=== PATIENT | female | born 1970 | race Caucasian/White ===

== ENCOUNTER 2019-06-16 07:39 | Inpatient (IN) ==
[2019-06-08 19:18] LABS: Basophils # (Auto) 0.03 K/mcL (0.00-0.30); Basophils % (Auto) 0.4 % (0.0-2.0); Eosinophils % (Auto) 2.7 % (0.0-7.0); Granulocytes % (Auto) 52.3 % (38.0-78.0); Hematocrit 42.7 % (34.1-44.9); Hemoglobin 13.9 g/dL (11.2-15.7); Lymphocytes # (Auto) 2.74 K/mcL (1.50-4.80); Lymphocytes % (Auto) 36.8 % (15.5-49.0); Mean Cell Volume 87.5 fL (80.0-100.0); Mean Corpuscular HGB Conc 32.6 g/dL (31.0-36.0); Mean Platelet Volume 11.4 fL (7.4-10.4); Monocytes # (Auto) 0.58 K/mcL (0.10-0.90); Monocytes % (Auto) 7.8 % (1.0-12.0); Platelet Count 313 K/mcL (140-440); RBC 4.88 M/mcL (3.59-5.38); Red Cell Distribution Width 13.2 % (11.5-14.5); WBC 7.4 K/mcL (4.50-11.00)
[2019-06-08 19:30] LABS: Blood Urea Nitrogen 15 mg/dl (6-20); Calcium 9.3 mg/dl (8.6-10.4); Carbon Dioxide 22 mmol/L (22-30); Chloride 103 mmol/L (96-108); Glomerular Filtration Rate 87; Glucose 91 mg/dL (70-105)
[2019-06-08 20:06] LABS: Estimated Average Glucose(eAG) 126 mg/dL
[~2019-06-16 07:39] MED LIST: CELECOXIB 200 MG CAPSULE PO SCH; IPRATROPIUM/ALBUTEROL 3 ML AMPUL.NEB NEB PRN; PREGABALIN 75 MG CAPSULE PO SCH; SCOPOLAMINE 1 PATCH PATCH TOPICAL PRN; ceFAZolin 2 GM in DEXTROSE 5% IN WATER 50 ML IV SCH; oxyCODONE 10 MG TAB.ER.12H PO SCH
[2019-06-16] MEDS ORDERED: PROPOFOL 200 MG/20 ML VIAL IV ONE (11:50)
[2019-06-16] MEDS ORDERED: TRANEXAMIC ACID 1,000 MG/10 ML VIAL IV ONE (11:50)
[2019-06-16] MEDS ORDERED: GLYCOPYRROLATE 0.2 MG/ML VIAL IV ONE (11:50)
[2019-06-16] MEDS ORDERED: KETAMINE 100 MG/ML ML IV ONE (11:50)
[2019-06-16] MEDS ORDERED: DEXAMETHASONE 10 MG/ML VIAL IV ONE (11:50)
[2019-06-16] MEDS ORDERED: LIDOCAINE HCL/PF 100 MG/5 ML SYRINGE IV ONE (11:50)
[2019-06-16] MEDS ORDERED: SUCCINYLCHOLINE 20 MG/ML ML IV ONE (11:50)
[2019-06-16] MEDS ORDERED: fentaNYL 250 MCG/5 ML VIAL IV ONE (11:50)
[2019-06-16] MEDS ORDERED: ONDANSETRON 4 MG/2 ML VIAL IV ONE (11:50)
[2019-06-16] MEDS ORDERED: BUPIVACAINE W/EPI 0.5% 50 ML VIAL IJ ONE (12:19)
[2019-06-16] MEDS ORDERED: METHOCARBAMOL 1,000 MG/10 ML VIAL IV PRN (12:53)
[2019-06-16] MEDS ORDERED: MEPERIDINE 25 MG/ML SYRINGE IV PRN (12:53)
[2019-06-16] MEDS ORDERED: MEPERIDINE 50 MG/ML INJECTION IM PRN (12:53)
[2019-06-16] MEDS ORDERED: ePHEDrine 50 MG/ML AMPUL IV PRN (12:53)
[2019-06-16] MEDS ORDERED: ONDANSETRON 4 MG/2 ML VIAL IV PRN ×2 (12:53→13:32)
[2019-06-16] MEDS ORDERED: ATROPINE SULFATE 0.4 MG/ML VIAL IV PRN (12:53)
[2019-06-16] MEDS ORDERED: PROMETHAZINE 25 MG/ML VIAL IV PRN (12:53)
[2019-06-16] MEDS ORDERED: PROMETHAZINE 25 MG/ML VIAL IM PRN (12:53)
[2019-06-16] MEDS ORDERED: METOPROLOL TARTRATE 5 MG/5 ML VIAL IV PRN (12:53)
[2019-06-16] MEDS ORDERED: HYDROmorphone 2 MG/ML VIAL IV PRN ×2 (12:53→13:32)
[2019-06-16] MEDS ORDERED: ACETAMINOPHEN 1,000 MG/100 ML BOTTLE IV ONE (12:53)
[2019-06-16] MEDS ORDERED: NALOXONE HCL 0.4 MG/ML VIAL IV PRN (12:53)
[2019-06-16] MEDS ORDERED: diphenhydrAMINE 50 MG/ML VIAL IV PRN (12:53)
[2019-06-16] MEDS ORDERED: IPRATROPIUM/ALBUTEROL 3 ML AMPUL.NEB NEB PRN (12:53)
[2019-06-16] MEDS ORDERED: LACTATED RINGERS 1,000 ML IV SCH (13:00)
--- NOTE | 2019-06-16 13:31 | Brief Operative Note ---
Date of procedure: 06/16/19 Pre-op diagnosis: Right shoulder severe OA Post-op diagnosis: same Procedure: 1)Right total shoulder arthroplasty 2)biceps tenodesis Grafts/Implants: Yes (Tornier small 35 cortiloc glenoid, 41 x 15 resurfacing head) Anesthesia: GETA Findings: severe bone on bone arthritis Complications: none Surgeon: Moe Mccall Security Sergeant: Cliff Sifuentes Estimated blood loss (cc): 150 Specimens Removed/Pathology: none sent Condition: stable Disposition: PACU
[2019-06-16] MEDS ORDERED: MAGNESIUM HYDROXIDE 30 ML ORAL.SUSP PO PRN (13:32)
[2019-06-16] MEDS ORDERED: BISACODYL 10 MG SUPP.RECT PR PRN (13:32)
[2019-06-16] MEDS ORDERED: POLYETHYLENE GLYCOL 3350 17 GM PACKET PO PRN (13:32)
[2019-06-16] MEDS ORDERED: FLEETS ADULT ENEMA PR PRN (13:32)
[2019-06-16] MEDS ORDERED: KETOROLAC 30 MG/ML VIAL IV PRN (13:32)
[2019-06-16] MEDS ORDERED: TRANEXAMIC ACID 1,000 MG/10 ML VIAL IV SCH (13:32)
[2019-06-16] MEDS: fentaNYL 100 MCG/2 ML VIAL IV PRN ×2 (14:25→14:29)
--- NOTE | 2019-06-16 15:03 | Operative Note ---
DATE OF OPERATION: 06/16/2019 PREOPERATIVE DIAGNOSIS: Right shoulder severe osteoarthritis. POSTOPERATIVE DIAGNOSIS: Right shoulder severe osteoarthritis. PROCEDURE PERFORMED: 1. Right total shoulder arthroplasty placing a Tornier Aequalis resurfacing head 41 x 15 and a small 35 cortiloc glenoid. 2. Bicep tenodesis. SURGEON: Moe Mccall MD VENTILATED RIB FITTER: Jean Carlos Sifuentes PA-C. This provider's expertise and technical skill were required throughout the case. The PA assisted with preoperative coordination, intraoperative retraction, wound closure, dressing and splint application, as well as postoperative documentation and care coordination. ANESTHESIA: General. DRAINS: None. SPECIMENS: None. COMPLICATIONS: None. BLOOD LOSS: 150 mL POSTOPERATIVE CONDITION: Stable. INDICATIONS FOR SURGERY: This is a 48-year-old female who has had longstanding progressive worsening severe right shoulder pain. Radiographs showed aboo-mj-ucjo osteoarthritis. FINDINGS AT SURGERY: She had severe [id number]-wt-[id number] arthritis. There were two very large loose bodies within the bicipital groove as well as significant retroversion of the glenoid. Post implantation showed good component position. PROCEDURE IN DETAIL: The patient had been seen preoperatively and informed consent had been obtained after discussion of risks and benefits of surgery. Risks including, but not limited to, bleeding, possibly requiring transfusion; infection, possibly requiring implant removal, prolonged IV antibiotics; injury to nerves, blood vessels, and other surrounding structures; anesthetic risks; incomplete or no resolution of symptoms, fracture, dislocation and possibility of needing further revision surgery. She understood and wished to proceed. Correct operative site was marked and the patient was taken to the operating room. General anesthesia induced. She was carefully positioned in the beach chair position and pressure points carefully padded. Right shoulder and upper extremity then carefully prepped and draped in normal sterile fashion and a timeout was performed verifying patient name, operative site, and plan. Ioban was used to cover all skin surfaces and a standard deltopectoral incision was made with a scalpel through skin and subcutaneous tissue. Hemostasis was obtained with Bovie cautery and then careful blunt dissection taken down onto the deltopectoral interval and the cephalic vein identified. IrriSept was irrigated and then careful blunt dissection was taken medial to the vein and then down to the subdeltoid space. Blunt finger dissection was used to develop the subdeltoid space and Syed deltoid retractor placed. The lateral edge of the conjoint tendon was identified and blue handle retractor placed underneath. We then palpated the biceps tendon and it was noted to be quite enlarged; felt like bony fragments that were loose within the bicipital groove. We went ahead and opened this and indeed there were two large loose bodies within the bicipital groove area. These were removed. The biceps was then amputated. A large curved osteotome was used to do a lesser tuberosity osteotomy to detach our subscap. We irrigated with IrriSept, and then an Ethibond traction stitch was placed around the lesser tuberosity bone fragment. We then dislocated the humeral head out anteriorly. A curved osteotome was used to remove inferior osteophytes and then we went ahead and exposed the glenoid. We removed labrum circumferentially as well as biceps stump. I also released capsule carefully keeping the Bovie directly on bone around the inferior portion of the glenoid, protecting the nerve with a metal sucker. Once we had adequate exposure, we did note on x-ray and looking at it that she had significant retroversion of the glenoid from her posterior wear so I did angle our guide pin to correct that. We then reamed until I had a flat surface circumferentially. This did significantly ream anterior bone. Prior to reaming, we had determined her size as a small 35. We then drilled the central peg. After this was completed, we used the peripheral drill guide to drill the three peripheral pegs and then a trial. It fit well, so we went ahead and opened a small 35 glenoid. DBX bone graft was placed in the flute of the central and then we irrigated with IrriSept while cement was mixed. We then suctioned and cemented the three peripheral holes pressurizing these and then the implant was impacted. This was held absolutely still until cement had fully hardened. We then re-exposed the proximal humerus. We sized her to a 41 and a guide pin was placed. We then used the reamer to ream until we contacted bone. We then opened a 41 x 15 implant. We irrigated with IrriSept. We did go ahead and cruciate punch and then irrigated with saline and then the implant was impacted until it was fully seated. We then checked our subluxation. It subluxed 50% posteriorly without difficulty, so I went ahead and did another IrriSept irrigation, after a minute more pulse lavage. We made two drill holes in the bicipital groove and then used a #2 FiberWire [id number]-ellhd around the lesser tuberosity osteotomy. We then, after tying the suture, took the biceps and ran the suture through biceps to tenodese and then cut the proximal stump off. The traction sutures were then passed through bone out laterally and tied in a mattress stitch over bone laterally. I also used #2 FiberWire [id number] in the rotator interval. Another IrriSept irrigation was done, after a minute more pulse lavage and #1 Vicryl was used to close the deltopectoral interval. Final IrriSept irrigation was done, after a minute final pulse lavage, and then fat was tacked to fascia with Vicryl and 2-0 Monocryl was used for subcutaneous and elysia for skin. Xeroform sterile dressings were applied. The arm was placed in a sling. The patient was awakened, extubated, and transferred to recovery in stable condition. [email or web address] Job ID: [id number] Doc ID: [id number] Moe Mccall MD MTDD
--- NOTE | 2019-06-16 15:24 | XRay Report ---
CLINICAL INFORMATION: Post-OP Total Shoulder COMPARISON: None. FINDINGS: Shoulder prostheses is anatomically aligned. No osseous abnormality. Soft tissue swelling seen as expected IMPRESSION: Negative Interpreted and Authenticated by: Dimitrios Larson 06/16/19
[2019-06-16] MEDS: 0.9 % SODIUM CHLORIDE 1,000 ML IV SCH ×2 (15:33→23:45)
[2019-06-16] MEDS: 0.9 % SODIUM CHLORIDE 10 ML SYRINGE IV SCH ×2 (15:38→23:22)
[2019-06-16] MEDS: oxyCODONE/APAP 5/325MG TABLET PO PRN ×2 (16:24→21:18)
[2019-06-16] MEDS: ceFAZolin 1 GM VIAL IV SCH (19:13)
[2019-06-16] MEDS: BENZOCAINE/MENTHOL 1 LOZENGE PO PRN (19:34)
[2019-06-16] MEDS ORDERED: SENNOSIDES 1 TABLET PO SCH (21:00)
[2019-06-16] MEDS: DOCUSATE SODIUM 100 MG CAPSULE PO SCH (21:18)
[2019-06-16] MEDS: ACYCLOVIR 400 MG TABLET PO SCH (21:19)
[2019-06-17] MEDS: oxyCODONE/APAP 5/325MG TABLET PO PRN ×3 (02:00→10:38)
[2019-06-17] MEDS: BENZOCAINE/MENTHOL 1 LOZENGE PO PRN (03:35)
[2019-06-17] MEDS: ceFAZolin 1 GM VIAL IV SCH (03:35)
[2019-06-17] MEDS: 0.9 % SODIUM CHLORIDE 10 ML SYRINGE IV SCH (06:52)
[2019-06-17] MEDS ORDERED: LEVOTHYROXINE 125 MCG TABLET PO SCH (07:30)
[2019-06-17] MEDS ORDERED: OMEPRAZOLE 20 MG CAPSULE PO SCH (07:30)
--- NOTE | 2019-06-17 07:51 | Discharge Summary ---
Providers - Providers Patient information: Note initiated : 06/17/19 at 7:49 am Service Date, if different from initiated Date: [] Patient: Vaishali Kumari 48 y/o F admitted on 06/16/19 for Right Total Shoulder Arthroplasty. Chief Complaint: [] Discharge date: 06/17/19 Hospitalization Hospital Course: Pt was admitted for a R TSA. Underwent procedure on the day of admission. Pt discharged post-op day 1. Will take ASA for DVT prophylaxis. f/u in 2 weeks. Discharge diagnosis: R shoulder OA Exam - Exam Clean and dry: Yes Weight bearing status: none Ortho Discharge - TSA - Patient Instructions Diet: Regular Diet Activity: non weight bearing Total Shoulder Protocol: Leave immobilizer in place except for bathing and ROM. Abduction pillow. Continue to wear sling until seen by physician. Codman Pendulum : These exercises use momentum produced by your body to move your shoulder joint. Bend your knees and shift your weight to your front leg, then back, allowing your arm to swing in the same directions. Using the same technique, alternately shift your weight between your right and left legs, allowing your arm to swing from side to side. These exercises are also performed in counterclockwise and clockwise circular motions. Typically these exercises are performed several times per day, for a set number repetitions or minutes, such as 20 times in a row or 5 minutes at a time. Dressing Care: May shower in 2 days - Follow Up Plan Disposition: Home, Self-Care Prognosis: Good Rehab Potential: Good Overall status at discharge: patient is progressing back to baseline - Orders For Discharge Prescriptions: Hydrocodone/APAP 7.5/325Mg [[place] 7.5-325Mg] 1 - 2 tab PO Q6HP PRN #70 tab PRN Reason: Pain Prescription Printed Pending Studies Resuscitation Status Full Code Diet Consistent Carbohydrate Diet Start FriJun 16 1333 Acyclovir (Zovirax) 400 mg PO BID [facility]; Protocol Last Admin: 06/16/19 21:19 Dose: 400 mg Documented by: EMILY Docusate Sodium (Colace) 100 mg PO BID [facility] Last Admin: 06/16/19 21:18 Dose: 100 mg Documented by: EMILY Sodium Chloride (Sodium Chloride 0.9%) 1,000 mls @ 100 mls/hr IV .Q10H [facility] Last Infusion: 06/17/19 01:20 Dose: 0 mls/hr Documented by: Admin: 06/16/19 23:45 Dose: Not Given Documented by: Admin: 06/16/19 15:33 Dose: 100 mls/hr Documented by: MAZIN Ketorolac Tromethamine (Toradol) 30 mg IV Q6HP PRN; Protocol PRN Reason: Per Pain Protocol Stop: 06/18/19 13:34 Last Admin: 06/16/19 15:37 Dose: 30 mg Documented by: MAZIN Oxycodone/Acetaminophen (Percocet 5-325 Mg) 0 tab PO Q4HP PRN; Protocol PRN Reason: Per Pain Protocol Last Admin: 06/17/19 06:49 Dose: 2 tab Documented by: Admin: 06/17/19 02:00 Dose: 1 tab Documented by: Admin: 06/16/19 21:18 Dose: 1 tab Documented by: Admin: 06/16/19 16:24 Dose: 1 tab Documented by: MAZIN Akhtar (Senokot) 2 tab PO HS [facility] Last Admin: 06/16/19 21:19 Dose: 2 tab Documented by: EMILY Sodium Chloride (Saline Flush) 10 ml IV Q8 [facility] Last Admin: 06/17/19 06:52 Dose: 10 ml Documented by: Admin: 06/16/19 23:22 Dose: Not Given Documented by: Admin: 06/16/19 15:38 Dose: Not Given Documented by: MAZIN Throat Lozenges (Cepacol) 1 lozenge PO PRN PRN PRN Reason: Sore Throat Last Admin: 06/17/19 03:35 Dose: 1 lozenge Documented by: Admin: 06/16/19 19:34 Dose: 1 lozenge Documented by: EMILY Shift Summary 06/17/19 05:32 Shift Summary by Mora Guardado Pt is A&Ox4. VSS on 1L O2 NC. Up w/1 assist and GB. Ambulated to/from BR a few times, but has not yet ambulated in the hallway. Dressing to right shoulder reinforced w/ABD and Medipore d/t sanguineous drainage. Currently CDI. Using ice packs off and on. CMS intact. Pt received Percocet 5 mg (1 tab) x2 for shoulder pain and 2 cepacol lozenges for throat irritation. Flatus present. Voiding well. IV to left hand, SL. Will update with verbal report. Initialized on 06/17/19 05:32 - END OF NOTE
[2019-06-17] MEDS: ACYCLOVIR 400 MG TABLET PO SCH (08:54)
[2019-06-17] MEDS: DOCUSATE SODIUM 100 MG CAPSULE PO SCH (08:54)
[2019-06-17] MEDS: 0.9 % SODIUM CHLORIDE 1,000 ML IV SCH (08:57)
[2019-06-17] MEDS ORDERED: FLUoxetine HCL 10 MG CAPSULE PO SCH (09:00)
[2019-06-17] MEDS ORDERED: PROPRANOLOL 160 MG PO SCH (09:00)
[2019-06-17] MEDS ORDERED: CETIRIZINE 10 MG TABLET PO SCH (09:00)
== END 2019-06-17 10:50 | disposition home or self-care (01) | DRG 483 ==
LOC: MEDSUR 07:39
PROVIDERS: ADMIT Orthopaedic Surgery; ATTEND Orthopaedic Surgery